=== PATIENT | male | born 2000 | race African-American/Black ===

== ENCOUNTER 2024-05-14 16:06 | Emergency (ER) | payer SELFPAY ==
[~2024-05-14] VITALS: Ht 185.4 cm; Wt 73.3 kg
[2024-05-14 16:10] VITALS: TEMP 98.4
[2024-05-14 16:54] LABS: BASO % 0.6 % (0.0-1.0); EOS # 0.3 10^3/uL (0.0-0.5); EOS % 3.6 % (0.0-3.0); HEMATOCRIT 48.6 % (42.0-52.0); HEMOGLOBIN 16.7 g/dl (13.5-17.5); LYMPH # 1.9 10^3/uL (1.5-5.0); LYMPH % 26.9 % (24.0-44.0); MEAN CORPUSCULAR HGB CONC 34.4 g/dl (32.0-36.5); MEAN CORPUSCULAR VOLUME 90.3 fl (80.0-96.0); MONO # 0.8 10^3/uL (0.0-0.8); MONO % 11.5 % (2.0-8.0); NEUTROPHILS # 4.1 10^3/uL (1.5-8.5); PLATELET COUNT, AUTOMATED 181 10^3/uL (150-450); RED BLOOD COUNT 5.38 10^6/uL (4.30-6.10); WHITE BLOOD COUNT 7.1 10^3/uL (4.0-10.0)
[2024-05-14 17:09] LABS: ALBUMIN 4.3 G/DL (3.2-5.2); BILIRUBIN,DIRECT 0.1 MG/DL (<0.4); BILIRUBIN,TOTAL 0.4 MG/DL (0.3-1.2); CK-MB VALUE MASS 1.1 NG/ML (<3.6)
[2024-05-14 17:11] LABS: MB/CK RELATIVE INDEX 0.49 (< OR =4)
[2024-05-14 17:15] LABS: INR 0.98; PROTHROMBIN TIME 13.3 SECONDS (12.5-14.5)
[2024-05-14] MEDS ORDERED: HOLTER MONITOR XX (18:05)
[2024-05-14 18:25] LABS: BLOOD UREA NITROGEN 14 MG/DL (9-23); CALCIUM LEVEL 9.9 MG/DL (8.5-10.1); CARBON DIOXIDE LEVEL 28 MMOL/L (20-31); CHLORIDE LEVEL 106 MMOL/L (98-107); CREATININE FOR GFR 0.82 MG/DL (0.70-1.30); GLOMERULAR FILTRATION RATE > 60.0 (>60); GLUCOSE, FASTING 91 MG/DL (60-100); MAGNESIUM LEVEL 2.3 MG/DL (1.8-2.4); SODIUM LEVEL 140 MMOL/L (136-145)
[2024-05-14 18:28] LABS: THYROID STIMULATING HORMONE 2.167 uIU/ML (0.55-4.78)
[2024-05-14 19:02] VITALS: BP 155/93; O2SAT 99
[2024-05-14 19:13] LABS: AMPHETAMINES LEVEL URINE NEGATIVE (NEGATIVE); BARBITURATES URINE NEGATIVE (NEGATIVE); COCAINE METABOLITE URINE NEGATIVE (NEGATIVE)
[2024-05-14 19:14] LABS: BENZODIAZEPINES URINE NEGATIVE (NEGATIVE); CANNABINOIDS URINE NEGATIVE (NEGATIVE); METHADONE URINE NEGATIVE (NEGATIVE); OPIATES URINE NEGATIVE (NEGATIVE); PHENCYCLIDINE URINE NEGATIVE (NEGATIVE)
== END 2024-05-14 19:12 | disposition home or self-care (01) ==
LOC: M ED 16:06
DX: R00.2 Palpitations (principal)

== ENCOUNTER 2024-10-07 09:06 | Emergency (ER) | payer OTHER, SELFPAY ==
[~2024-10-07] VITALS: Ht 175.3 cm; Wt 78.3 kg
[~2024-10-07 09:06] MED LIST: HOLTER MONITOR XX
[2024-10-07] MEDS: OMEPRAZOLE 20MG CAP PO ONE (10:43)
[2024-10-07] MEDS ORDERED: OMEP-173 PO (10:49)
[2024-10-07] MEDS ORDERED: PENI500T PO (10:49)
[2024-10-07 10:52] VITALS: BP 132/79; TEMP 97.4; O2SAT 100
== END 2024-10-07 11:59 | disposition home or self-care (01) ==
LOC: M ED 09:06
DX: J02.9 Acute pharyngitis, unspecified (principal); K21.9 Gastro-esophageal reflux disease without esophagitis

== ENCOUNTER 2024-12-29 10:51 | Emergency (ER) | payer OTHER ==
[~2024-12-29] VITALS: Ht 180.3 cm; Wt 97.4 kg
[~2024-12-29 10:51] MED LIST changes: +AMOX875T2 PO; +OMEP-173 PO; +PENI500T PO
[2024-12-29 16:50] VITALS: BP 127/89; TEMP 97.1; O2SAT 97
== END 2024-12-29 17:00 | disposition home or self-care (01) ==
LOC: M ED 10:51
DX: N52.9 Male erectile dysfunction, unspecified (principal)

== ENCOUNTER → 2025-02-03 | Outpatient (REF) | payer OTHER ==
[2025-02-03 17:23] LABS: APPEARANCE, URINE CLEAR (CLEAR); BACTERIA, URINE AUTO NEGATIVE (NEGATIVE); BILIRUBIN, URINE AUTO NEGATIVE (NEGATIVE); BLOOD, URINE BLOOD NEGATIVE (NEGATIVE); GLUCOSE, URINE (UA) AUTO NEGATIVE (NEGATIVE); KETONE, URINE AUTO NEGATIVE (NEGATIVE); LEUKOCYTE ESTERASE, URINE AUTO NEGATIVE (NEGATIVE); MUCUS, URINE MODERATE (NEGATIVE); NITRITE, URINE AUTO NEGATIVE (NEGATIVE); PROTEIN, URINE AUTO NEGATIVE (NEGATIVE); RBC, URINE AUTO 0 /HPF (0-3); SPECIFIC GRAVITY URINE AUTO 1.030 (1.002-1.035); SQUAMOUS EPITHELIAL CELL UR AU 0 /HPF (0-6); UROBILINOGEN, URINE AUTO 2.0 mg/dL (0.0-2.0); WBC, URINE AUTO 2 /HPF (0-3)
[2025-02-03 18:24] LABS: Trichomonas vaginalis (AMP) NOT DETECTED (NEGATIVE)
[2025-02-03 18:47] LABS: GC DNA AMPLIFICATION NEGATIVE (NEGATIVE)
== END ==
LOC: M SMT 16:51
PROVIDERS: ATTEND Nurse Practitioner Family
DX: R30.0 Dysuria (principal)